=== PATIENT | male | born 1975 | race Hispanic/Latino ===

== ENCOUNTER 2017-08-18 09:25 | Observation (INO) | payer OTHER ==
[2017-08-16 10:48] LABS: BASOPHILS # (AUTO) 0.1 (0.0-0.1); BASOPHILS % 0.8 % (0.0-1.0); EOSINOPHILS # (AUTO) 0.3 (0.0-0.4); EOSINOPHILS % 3.8 % (0.0-6.0); HEMATOCRIT 49.2 % (38.2-49.6); HEMOGLOBIN 16.8 g/dL (14.0-18.0); LYMPHOCYTES # (AUTO) 2.9 (1.0-3.2); LYMPHOCYTES % 36.1 % (18.0-39.1); MEAN CORPUSCULAR HEMOGLOBIN 30.8 pg (28-32); MEAN CORPUSCULAR HGB CONC 34.1 g/dL (31-35); MEAN CORPUSCULAR VOLUME 90.3 fL (81-99); MONOCYTES # (AUTO) 0.7 (0.2-0.8); MONOCYTES % 8.7 % (4.4-11.3); NEUTROPHILS % 50.3 % (38.7-80.0); PLATELET COUNT 239 x10e3/uL (140-360); RED BLOOD COUNT 5.45 x10e6/uL (4.3-5.7); RED CELL DISTRIBUTION WIDTH 12.4 % (11.7-14.4)
[2017-08-16 11:02] LABS: INR 0.9; PARTIAL THROMBOPLASTIN TIME 25.2 seconds (23.8-35.5); PROTHROMBIN TIME 12.6 seconds (11.9-14.5)
--- NOTE | 2017-08-16 18:10 | Diagnostic Imaging Report ---
PROCEDURE: Frontal and lateral views of the chest. COMPARISON: None. INDICATIONS: PRE OPERATIVE CHEST XRAY FOR LUMBAR SPINE SURGERY FINDINGS: Lines/tubes: None. Lungs: The lungs are well inflated and clear. There is no evidence of pneumonia or pulmonary edema. Pleura: There is no pleural effusion or pneumothorax. Heart and mediastinum: The heart and the mediastinum are normal. Bones: No acute bony abnormality. Safety pin and a paper staple overlies being the posterior lower neck/upper back. IMPRESSION: 1. No acute cardiopulmonary disease. 2. Safety pin and a paper staple overlies being the posterior lower neck/upper back. Dictated by: Chandrakant Flores M.D. on 08/16/2017 at 18:19 Electronically approved by: Chandrakant Flores M.D. on 08/16/2017 at 18:19
[~2017-08-18] VITALS: Ht 172.7 cm; Wt 78.7 kg
[~2017-08-18 09:25] MED LIST: LIDOCAINE HCL (LTA) 4 ML SOLN ONE
[2017-08-18] MEDS ORDERED: NAPROXEN500 MG PO (09:30)
[2017-08-18] MEDS ORDERED: TYLENOL WITH C1 EACH PO (09:30)
[2017-08-18] MEDS ORDERED: CEFAZOLIN SOD 1 GM VIAL ONE (10:30)
[2017-08-18 11:06] LABS: ANION GAP 13.5 mmol/L (8-16); BLOOD UREA NITROGEN 18 mg/dL (7-26); BUN/CREATININE RATIO 20 (6-25); CALCIUM 9.4 mg/dL (8.4-10.2); CARBON DIOXIDE 25 mmol/L (22-29); CHLORIDE 106 mmol/L (98-107); CREATININE, SERUM 0.89 mg/dL (0.72-1.25); EST GLOMERULAR FILTRATION RATE > 60 ML/MIN (60-); GLUCOSE 107 mg/dL (74-118); POTASSIUM 3.5 mmol/L (3.5-5.1); SODIUM 141 mmol/L (136-145)
[2017-08-18] MEDS ORDERED: BACITRACIN 50,000 UNIT VIAL ONE (11:54)
[2017-08-18] MEDS ORDERED: LIDOCAINE 1% W/EPINEPHRINE 20 ML VIAL ONE (11:54)
[2017-08-18] MEDS ORDERED: THROMBIN FOR SOLN 5,000 UNIT VIAL ONE (11:54)
[2017-08-18] MEDS ORDERED: GELATIN SPONGE SZ 100 ONE (11:54)
[2017-08-18] MEDS: LACTATED RINGER'S 1,000 ML IV SCH (14:02)
[2017-08-18] MEDS ORDERED: HYDROMORPHONE 2MG/ML INJ IV PRN (14:15)
[2017-08-18] MEDS ORDERED: CEPACOL SORE THROAT LOZENGES PO PRN (14:15)
[2017-08-18] MEDS ORDERED: PROMETHAZINE HCL (IM) 25 MG/ML VIAL IM PRN (14:15)
[2017-08-18] MEDS ORDERED: ONDANSETRON HCL INJ 2 MG/ML VIAL IV PRN (14:15)
[2017-08-18] MEDS ORDERED: MAGNESIUM/ALUMINUM/SIMETHICONE 30 ML UDC PO PRN (14:15)
[2017-08-18] MEDS ORDERED: MORPHINE SULFATE 5 MG/ML VIAL IM PRN (14:15)
[2017-08-18] MEDS ORDERED: ACETAMINOPHEN 325 MG TAB PO PRN (14:15)
[2017-08-18] MEDS ORDERED: CARISOPRODOL 350 MG TAB PO PRN (14:15)
[2017-08-18] MEDS ORDERED: OXYCODONE/ACETAMINOPHEN 5-325 1 EACH TABLET PO PRN (14:15)
[2017-08-18] MEDS ORDERED: FENTANYL CITRATE/PF 100MCG/2 ML INJ ONE ×2 (14:51→18:55)
--- NOTE | 2017-08-18 15:07 | Operative Report ---
DATE OF PROCEDURE: August 18, 2017 PREOPERATIVE DIAGNOSIS: Large central L4-5 disk herniation with bilateral radiculopathy. POSTOPERATIVE DIAGNOSIS: Large central L4-5 disk herniation with bilateral radiculopathy, M51.16. PROCEDURE: Left L4-5 laminotomy, medial facetectomy, and microsurgical diskectomy, [id number]. ANESTHESIA: General. INDICATIONS: The patient is a 42-year-old man who presents with a very large central disk herniation at L4-5 nearly completely filling the spinal canal. He has bilateral L5 radiculopathies and is walking with crutches. He was taken to the operating room for a microsurgical diskectomy through a left-sided approach where the disk appeared to be bigger on MRI. PROCEDURE: After the induction of general anesthesia, the patient was placed on the operating table in prone position on a Ziggy frame. The lumbar region was prepped and draped in sterile fashion. A preoperative x-ray was obtained. A small midline incision was created. The lumbar fascia was opened to the left of midline, and a subperiosteal dissection was carried out. The 2nd x-ray revealed localization at L5-S1. One level was counted above this level without extending the incision in order to locate the L4-5 segment. The L4 and L5 laminae and the medial aspect of the L4-5 facet joint were exposed. The operating microscope was brought in. A high-speed drill equipped with a sly bur was used to drill the inferior aspect of the lamina of L4, the medial rim of the L4 facet joint, and the superior rim of the lamina of L5. The ligamentum flavum was resected, and the dural sac and the L5 traversing nerve root and the lateral margin of the dura were exposed and decompressed. The herniated disk material immediately came into view as a very large mass elevating the dura and the shoulder of the L5 nerve root. This was mobilized with a micro ball probe and grasped with a micropituitary rongeur and delivered out as a large fragment of disk. This maneuver was repeated numerous times, and numerous large fragments of this were retrieved and removed from the ventral epidural space and from the subligamentous location until the dura and the L5 nerve root were fully decompressed and a ball probe could be passed in the ventral epidural space all the way across the midline without encountering any resistance. The opening into the annulus of the disk was enlarged with a number 11 blade, and the loose contents of the L4-5 disk and the residual subligamentous portion of the disk herniation were resected with curets and pituitary rongeurs. Meticulous hemostasis was secured. The retractor was removed. The lumbar fascia was closed with 0 Vicryl sutures. Subcutaneous layer was closed with 2-0 Vicryl sutures. The skin was closed with 3-0 Monocryl sutures in subcuticular fashion. Steri-Strips and a dressing were applied. The patient was awakened, extubated, and taken to the postanesthesia care unit in stable condition. No intraoperative complications were encountered. Estimated blood loss was 10 mL. Job#: [id number] EV
[2017-08-18 16:14] VITALS: BP 130/88
[2017-08-18 16:44] VITALS: BP 130/88
[2017-08-18] MEDS ORDERED: ONDANSETRON HCL INJ 2 MG/ML VIAL ONE (17:51)
[2017-08-18] MEDS ORDERED: LIDOCAINE HCL 2% LOCAL INJ 5 ML SDV VIAL INJ ONE (17:51)
[2017-08-18] MEDS ORDERED: NEOSTIGMINE 5 MG/5ML SYR ONE (17:51)
[2017-08-18] MEDS ORDERED: DEXAMETHASONE SOD PHOS INJ 4 MG/ML VIAL ONE (17:51)
[2017-08-18] MEDS ORDERED: ACETAMINOPHEN 1000 MG/100 ML IV ONE (17:51)
[2017-08-18] MEDS ORDERED: GLYCOPYRROLATE INJ 1MG/ 5 ML SYR ONE (17:51)
[2017-08-18] MEDS ORDERED: PROPOFOL IV EMULSION 10 MG/ML 20 ML VIAL ONE (17:51)
[2017-08-18] MEDS ORDERED: SEVOFLURANE INHAL SOLN 250 ML PEN BTL ONE (17:51)
[2017-08-18] MEDS ORDERED: ROCURONIUM BROMIDE 10 MG/ML 5ML VIAL ONE (17:51)
[2017-08-18] MEDS ORDERED: MIDAZOLAM HCL 2 MG/2 ML VIAL ONE (18:55)
[2017-08-18 19:40] VITALS: BP 131/80
[2017-08-18] MEDS ORDERED: ZOLPIDEM TARTRATE 5 MG TAB PO PRN (21:00)
[2017-08-18] MEDS: CEFAZOLIN SOD 1 GM VIAL IV SCH (21:32)
[2017-08-18] MEDS ORDERED: CEFAZOLIN SOD 1 GM/NS 50ML 50 ML IV SCH (22:00)
[2017-08-19] VITALS: BP 120/73
[2017-08-19] MEDS: LACTATED RINGER'S 1,000 ML IV SCH (04:10)
[2017-08-19] MEDS: CEFAZOLIN SOD 1 GM VIAL IV SCH ×2 (04:10→11:09)
[2017-08-19 05:00] VITALS: BP 119/75
[2017-08-19 08:15] VITALS: BP 122/76
[2017-08-19 08:23] VITALS: BP 122/76
[2017-08-19 11:30] VITALS: BP 137/79
== END 2017-08-19 11:42 | disposition home or self-care (01) ==
LOC: OR 09:25 → IMCU 15:36
PROVIDERS: ADMIT Neurological Surgery; ATTEND Neurological Surgery
DX: M51.16 Intervertebral disc disorders with radiculopathy, lumbar region (principal)
CPT/HCPCS: 36415; 63047; 71020; 72020; 80048; 85025; 85610; 85730; 86850; 86900; 88304; 93005; G0378 ×2; J0690 ×2; J1100; J1170; J2001; J2250; J2405; J7120 ×2; 71046

== ENCOUNTER → 2018-01-19 | Outpatient (CLI) | payer OTHER ==
[~2018-01-19] MED LIST changes: +GADOBENATE DIMEGLUMINE 1 ML IV ONE; -LIDOCAINE HCL (LTA) 4 ML SOLN ONE; +NAPROXEN500 MG PO; +TYLENOL WITH C1 EACH PO
--- NOTE | 2018-01-20 12:12 | Diagnostic Imaging Report ---
EXAMINATION: MRI of the lumbar spine without contrast HISTORY: Low back pain radiating to the left lower extremity, spine surgery 08/18/2017 COMPARISON: Lumbar spine MRI on 07/05/2017 TECHNIQUE: Sagittal T1, T2, STIR; axial T2 and proton density. FINDINGS: It is assumed that there are 5 lumbar vertebrae. Curvature/Alignment: Straightening of lumbar lordosis. Vertebrae: No evidence of recent fracture, infection, or neoplasm. New Modic I type I endplate degenerative changes with subchondral bone marrow edema at L4-L5. Conus: Normal, terminating at L1-L2 Cauda equina: Unremarkable. Lower thoracic: Unremarkable. Paraspinal soft tissues: Unremarkable. Degenerative changes: L1-L2 to L3-L4: Unremarkable. L4-L5: -Status post total discectomy of previously seen disc herniation. Effacement of the left lateral recesses due to a small amount of enhancing scar tissue (partially encasing the traversing left L5 nerve root), no discrete residual/recurrent disc. -Left-sided laminectomy with minimal left lateral epidural underlying enhancing granulation tissue. -Minimal edema and enhancement within the left posterolateral aspect of the disc may represent granulation tissue as well, no osseous destruction or fluid collections are seen. -Asymmetric to the left foramen disc bulge (which is minimally abutting the exiting left L4 nerve root without definite compression) and facet arthrosis. Mild foraminal narrowing. L5-S1: Mild symmetric disc bulge with small posterior annular fissure. No canal or foraminal stenosis. IMPRESSION: 1. Status post L4-L5 total disc herniation discectomy, no residual or recurrent disc. Small amount of enhancing scar tissue in the left lateral recess is partially encasing the left L5 nerve root. 2. Mild degenerative foraminal stenosis mainly on the left at L4-L5. 3. New Modic I type endplate degenerative changes at L4-L5. Signed by: Dr. Marilou Aguilar M.D. on 01/20/2018 12:09 PM
== END ==
LOC: MRI 12:42
PROVIDERS: ATTEND Neurological Surgery
DX: M51.16 Intervertebral disc disorders with radiculopathy, lumbar region (principal)
CPT/HCPCS: 72158